=== PATIENT | female | born 1985 | race Two or more races ===

== ENCOUNTER 2016-05-22 20:22 | Observation (INO) | payer SELFPAY | END 2016-05-22 23:59 | disposition home or self-care (01) | LOC: 3 SO LND 20:22 | PROVIDERS: ADMIT Obstetrics & Gynecology; ATTEND Obstetrics & Gynecology | DX: O62.9 Abnormality of forces of labor, unspecified (principal); O26.893 Other specified pregnancy related conditions, third trimester; N94.89 Other specified conditions associated with female genital organs and menstrual cycle; Z3A.37 37 weeks gestation of pregnancy | CPT/HCPCS: G0378; G0379 ==

== ENCOUNTER 2016-05-23 13:15 | Inpatient (IN) | payer SELFPAY ==
[~2016-05-23] VITALS: Ht 152.4 cm; Wt 67.1 kg
[2016-05-23] MEDS ORDERED: IV RINGERS,LACTATED 1000ML 1,000 ML IV SCH ×2 (13:43→15:15)
[2016-05-23] MEDS ORDERED: OXYTOCIN 30 UNIT/500 ML PREMIX 500 ML IV PRN ×2 (13:45→14:30)
[2016-05-23] MEDS ORDERED: LIDOCAINE 1% PF 30 ML VIAL. INJ PRN (13:45)
[2016-05-23] MEDS ORDERED: BUTORPHANOL 2 MG VIAL. IV PRN ×2 (13:45)
[2016-05-23] MEDS ORDERED: 0.9 % SODIUM CHLORIDE 10 ML DISP.SYRIN. IV PRN ×2 (13:45→14:30)
[2016-05-23] MEDS ORDERED: TERBUTALINE 1 MG/ML VIAL. SQ PRN (13:45)
[2016-05-23] MEDS ORDERED: FENTANYL PF 100 MCG/2 ML VIAL. IV PRN ×2 (13:45)
[2016-05-23 13:58] VITALS: BP 109/60
[2016-05-23] MEDS ORDERED: ROPIVacaine 0.2% IN 0.9%NACL PF 40 MG/20 ML DISP.SYRIN. ONE ×2 (14:00→14:35)
[2016-05-23] MEDS ORDERED: OXYTOCIN in NORMAL SALINE PREMIX 30 UNIT/500 ML BAG. IV ONE (14:00)
[2016-05-23] MEDS ORDERED: L&D EPIDURAL CASSETTE 100 ML PUMP.RESVR. EP ONE (14:00)
[2016-05-23] MEDS ORDERED: AMPICILLIN 2 GM in IV NORMAL SALINE 100ML 100 ML IV ONE (14:15)
[2016-05-23 14:24] LABS: HEMATOCRIT 25.4 % (36.0-47.0); RED BLOOD COUNT 3.62 x10^6/uL (3.50-5.40); RED CELL DISTRIBUTION WIDTH 18.6 % (11.5-14.5)
[2016-05-23] MEDS ORDERED: HYDROCORTISONE 1% TOPICAL OINTMENT 30GM TUBE. TP PRN (14:30)
[2016-05-23] MEDS ORDERED: DIPHENHYDRAMINE HCL 25 MG CAPSULE PO PRN (14:30)
[2016-05-23] MEDS ORDERED: MMR per PROTOCOL. MC PRN (14:30)
[2016-05-23] MEDS ORDERED: ZOLPIDEM 5 MG TABLET. PO PRN (14:30)
[2016-05-23] MEDS ORDERED: BENZOCAINE 20% TOPICAL AEROSOL SPRAY 57GM CAN. TP PRN (14:30)
[2016-05-23] MEDS ORDERED: DOCUSATE SODIUM 100 MG CAPSULE PO PRN (14:30)
[2016-05-23] MEDS ORDERED: MAGNESIUM HYDROXIDE 2,400 MG/30 ML ORAL.SUSP. PO PRN (14:30)
[2016-05-23] MEDS ORDERED: PHENYLEPH/MINERAL OIL/PETROLAT RECTAL OINTMENT 28GM TUBE. RC PRN (14:30)
[2016-05-23] MEDS ORDERED: ACETAMINOPHEN 325 MG TABLET. PO PRN (14:30)
[2016-05-23] MEDS ORDERED: MAG HYDROX/ALUMINUM HYDROX/SMC 30 ML ORAL.SUSP PO PRN (14:30)
[2016-05-23] MEDS ORDERED: SIMETHICONE 80 MG TAB.CHEW PO PRN (14:30)
[2016-05-23] MEDS ORDERED: L&D EPIDURAL CASSETTE 100 ML EP ONE (14:35)
[2016-05-23] MEDS ORDERED: NALOXONE 0.4 MG/ML VIAL. IV PRN (15:15)
[2016-05-23] MEDS ORDERED: FENTANYL PF 100 MCG/2 ML VIAL. EPI ONE (15:15)
[2016-05-23] MEDS ORDERED: ROPIVacaine 0.2% PF 10 ML VIAL. EPI ONE (15:15)
[2016-05-23] MEDS ORDERED: L&D EPIDURAL CASSETTE 100 ML EP PRN (15:15)
[2016-05-23] MEDS ORDERED: EPHEDRINE PF IN SALINE 50 MG/5 ML DISP.SYRIN. IV PRN (15:15)
[2016-05-23] MEDS ORDERED: ONDANSETRON PF 4 MG/2 ML VIAL. IV PRN (15:15)
[2016-05-23] MEDS: IBUPROFEN 600 MG TABLET. PO SCH (17:44)
[2016-05-23] MEDS ORDERED: AMPICILLIN 1 GM in IV NORMAL SALINE 50ML 50 ML IV SCH (18:00)
[2016-05-23 18:15] VITALS: BP 94/56
[2016-05-23 18:55] VITALS: BP 113/80
--- NOTE | 2016-05-23 21:39 | OP ---
DATE OF SURGERY: 05/23/2016 This patient is a 30-year-old [place] lady who is a 6, para 5, EDC 06/11/2016, patient of [facility], admitted to the hospital in active labor and having contractions and heart tones are 148 per minute, vertex presenting. Pelvic exam showed membranes intact, cervix dilated to about 6 cm and she did receive labor epidural block and amniotomy was done subsequently and she had good progress of labor and had a spontaneous vaginal delivery. A live male infant delivered at 1558 hours on 05/23/2016 with the score of 8, 9, and 9 without any problem. The baby's weight is 6 pounds 5 ounce. Cord was clamped and cut. Cord pHs were sent for, cord blood was taken. Placenta removed spontaneous. No hemorrhage noted. She did receive Pitocin after delivery of the placenta. Estimated blood loss about 50 mL. Baby is referred to employee benefits manager for further care and treatment. Mother tolerated the delivery well. No complications. YURY SANCHEZ MD DR: NILAM/odalis JOB#: [id number] / [id number]
--- NOTE | 2016-05-23 21:42 | HP ---
ADMIT DATE: 05/23/2016 This patient is a 30-year-old [place] lady who is a patient at [facility], came in to the hospital with a history of having contractions and patient in active labor. At the time of admission to the hospital, cervix was dilated to 6 cm and membranes intact and the patient admitted for labor and delivery. OBJECTIVE: VITAL SIGNS: Stable. HEAD, EYES, NOSE, THROAT: Within normal limits. LUNGS: Clear. HEART: Sounds regular sinus rhythm. ABDOMEN: About 37 weeks' size. heart tones of 146 per minute and vertex presenting. PELVIC: As mentioned above, 6 cm dilated. DIAGNOSIS: 6, para 5, patient in active labor, term 37 weeks' . PLAN: Admission and vaginal delivery. YURY SANCHEZ MD DR: NILAM/odalis JOB#: [id number] / [id number]
[2016-05-23] MEDS: OXYCODONE/APAP 5/325 TABLET. PO PRN (22:59)
[2016-05-23 23:14] VITALS: BP 99/58
[2016-05-24 05:30] VITALS: BP 107/73
[2016-05-24] MEDS: IBUPROFEN 600 MG TABLET. PO PRN (05:52)
[2016-05-24] MEDS: FERROUS SULFATE 325 MG TABLET PO SCH (08:20)
[2016-05-24] MEDS: OXYCODONE/APAP 5/325 TABLET. PO PRN ×2 (08:21→12:49)
--- NOTE | 2016-05-24 08:35 | PDOC ---
SUBJECTIVE Subjective Doing well No problems OBJECTIVE Objective Vital signs stable Vital Signs Vital Signs Date Time Temp Pulse Resp B/P Pulse Ox O2 Delivery O2 Flow Rate FiO2 05/24/16 08:21 Room Air 05/24/16 05:30 98.0 67 18 107/73 98.0 05/23/16 23:14 98.4 68 16 99/58 98.4 05/23/16 18:55 97.9 77 18 113/80 Room Air 97.9 05/23/16 18:15 97.9 74 18 94/56 Room Air 97.9 05/23/16 13:58 98.0 99 20 109/60 98.0 PHYSICAL EXAM Physical Exam Abdomen soft Uterus firm Lochia normal ASSESSMENT/PLAN Assessment/Plan Baby doing fine Plan dismissal in am Problems: COMMENT Lab Laboratory Tests Test 05/23/16 13:55 05/24/16 04:15 White Blood Count 9.0x10^3/uL (4.0-11.0) Red Blood Count 3.62x10^6/uL (3.50-5.40) Hemoglobin 8.0g/dL (12.0-15.5) Hematocrit 25.4% (36.0-47.0) 24.8% (36.0-47.0) Mean Corpuscular Volume 70fL (79-100) Mean Corpuscular Hemoglobin 22pg (25-35) Mean Corpuscular Hemoglobin Concent 32g/dL (31-37) Red Cell Distribution Width 18.6% (11.5-14.5) Platelet Count 202x10^3/uL (140-400) RPR Titer Additional Testing Non reactive (Non Reactive) YURY SANCHEZ MD May 24, 2016 08:35
[2016-05-24 09:30] VITALS: BP 95/64
[2016-05-24] MEDS: IBUPROFEN 600 MG TABLET. PO SCH (12:48)
[2016-05-24 17:10] VITALS: BP 111/72
[2016-05-24 23:13] VITALS: BP 104/55
[2016-05-25] MEDS: IBUPROFEN 600 MG TABLET. PO PRN (04:30)
[2016-05-25 05:20] VITALS: BP 106/66
[2016-05-25] MEDS: FERROUS SULFATE 325 MG TABLET PO SCH (07:57)
--- NOTE | 2016-05-25 10:10 | PDOC ---
SUBJECTIVE Subjective Doing well No complaints OBJECTIVE Objective No fever Patient likes to go home Vital Signs Vital Signs Date Time Temp Pulse Resp B/P Pulse Ox O2 Delivery O2 Flow Rate FiO2 05/25/16 05:20 98.1 56 16 106/66 98.1 05/24/16 23:13 98.2 63 16 104/55 98.2 05/24/16 17:10 98.0 62 18 111/72 Room Air 98.0 05/24/16 12:49 18 Room Air PHYSICAL EXAM Physical Exam Abdomen soft Lochia normal ASSESSMENT/PLAN Assessment/Plan Patient will go home today RTO 6 weeks for checkup Problems: UYRY SANCHEZ MD May 25, 2016 10:10
[2016-05-25 10:59] VITALS: BP 110/68
[2016-05-25 12:08] VITALS: BP 107/66
[2016-05-25 16:13] VITALS: BP 110/72
== END 2016-05-25 16:20 | disposition home or self-care (01) | DRG 775 ==
LOC: 3 SO LND 13:15 → OBSVTOIN 13:45 → 3 NORTH 18:00
PROVIDERS: ADMIT Obstetrics & Gynecology; ATTEND Obstetrics & Gynecology
PROC: 10E0XZZ Delivery of Products of Conception, External Approach (ICD-10-PCS; principal; 2016-05-23)
PROC: 3E0S3CZ (ICD-10-PCS; 2016-05-23)
PROC: 00HU33Z Insertion of Infusion Device into Spinal Canal, Percutaneous Approach (ICD-10-PCS; 2016-05-23)
PROC: 10907ZC Drainage of Amniotic Fluid, Therapeutic from Products of Conception, Via Natural or Artificial Opening (ICD-10-PCS; 2016-05-23)
DX: O80 Encounter for full-term uncomplicated delivery (principal); Z3A.37 37 weeks gestation of pregnancy; Z37.0 Single live birth
CPT/HCPCS: 36415; 85014; 85027; 86593; 86850; 86900; 86901; G0379; J0290; J2590; J2795; J7120